=== PATIENT | male | born 1960 | race Caucasian/White ===

== ENCOUNTER → 2016-09-10 07:45 | Day surgery (SDC) | payer BC ==
[2016-09-09 16:25] LABS: HEMATOCRIT 42.8 % (42.0-54.0); HEMOGLOBIN 14.4 g/dL (13.5-17.5); MCHC 33.6 g/dL (31.0-37.0); MCV 97.9 fL (80.0-100.0); MEAN PLATELET VOLUME 10.5 fL (7.4-10.4); RBC 4.37 10x6/uL (4.20-6.10); RDW 13.1 % (11.5-14.5); WBC 9.1 10x3/uL (4.8-10.8)
[~2016-09-10] VITALS: Ht 172.7 cm; Wt 127.0 kg
[~2016-09-10 07:45] MED LIST: CLEOCIN HCL300 MG PO; COREG 3.1253.125 MG PO; CYMBALTA30 MG PO; HYDROCODON-ACE1 EAC7 PO; HYDROCODONE-APA1 TAB PO; NORVASC5 MG PO; PROVENTIL HFA6.7 GM INH
[2016-09-10 07:59] VITALS: BP 141/80; Ht 172.7 cm; Wt 127.0 kg
--- NOTE | 2016-09-10 13:22 | NUR ---
CM MET WITH PATIENT AND FRIEND REGARDING DISCHARGE PLANNING / NEEDS. PATIENT STATES HIS DISCHARGE PLAN IS TO RETURN HOME. WILL NEED HOME HEALTH SERVICES FOR DAILY WOUND CARE TO RT GROIN. PATIENT STATES HIS FRIEND BABAK ALVARENGA, CELL [phone], IS WILLING AND AVAILABLE TO LEARN HOW TO DO DAILY WOUND CARE LONG AGENCY CAN TEACH HIM BEFORE / AFTER WORK. INFORMED PATIENT AND BABAK THAT HOME HEALTH WOULD SCHEDULE VISITS WHEN CAREGIVER IS AVAILABLE TO ALLOW TIME FOR WOUND CARE TRAINING. PATIENT ALSO EXPRESSED NEED FOR SHOWER CHAIR. STATES HE IS INDEPENDENT WITH ALL ADL'S / IADL'S BUT WANTS SHOWER CHAIR TO ALLOW HIM TO REST DURING THE SHOWER. STATES HE HAS NO DIFFICULTY TRANSFERING INTO SHOWER/TUB AND KNOWS THAT HE CAN NOT BATHE, OR EMERSE WOUND INTO TUB OF WATER. CALLED [facility]ED FOR SHOWER CHAIR TO BE PICKED UP BY PATIENT ON HIS WAY HOME. INFORMED HIM THAT LOAN CLOSET CLOSES AT 1600 TODAY. PATIENT AND FRIEND BOTH VOICED UNDERSTANDING. VOICED SATISFACTION WITH SHOWER CHAIR ARRANGEMENTS AND WILL [employer] COUNSEL[employer] SHOWER CHAIR TODAY. PATIENT STATES HOME ENVIORONMENT IS SAFE. DENIES ANY OTHER DISHARGE PLANNING / NEEDS AT THIS TIME. PATIENT CHOSE [facility] [facility]. CM CALL [facility], SPOKE WITH RD. REFERRAL ACCEPTED. FAXED H&P, ORDER AND FACE SHEET TO AGENCY. CM WILL CONTINUE TO FOLLOW AND ASSIST NEEDED WITH DISCHARGE PLANNING / NEEDS.
--- NOTE | 2016-09-10 13:45 | NUR ---
1320-MEDICATED WITH ONE 10MG NORCO FOR INCISIONAL PAIN. 1325-PT. STATES HE VOIDED IN TOILET, DISCHARGE INSTRUCTIONS GIVEN. PT. ESCORTED VIA WHEELCHAIR TO PERSONAL CAR, LEFT WITH FAMILY DRIVING.
--- NOTE | 2016-09-22 14:52 | OP ---
PATIENT NAME: MARIELENA LAWRENCE MEDICAL RECORD: [id number] :64 LOCATION:D.OPS ADMISSION DATE: SURGEON: ROSSANA MORA MD DATE OF OPERATION: 09/10/2016 PREOPERATIVE DIAGNOSES: 1. Right groin abscess. 2. Tobacco dependence syndrome. 3. Hypertension. POSTOPERATIVE DIAGNOSES: 1. Right groin abscess. 2. Tobacco dependence syndrome. 3. Hypertension. PROCEDURE: I&D of right groin abscess. SURGEON: Rossana Mora MD. REPORT OF PROCEDURE: The patient's right groin and indwelling open wound with packing were all prepped and draped in sterile fashion. The packing was removed. I was able to manipulate my finger into the small wound and feel around in the cavity. I did penetrate into a small collection of fluid, which appeared to be purulent. I then extended the incision laterally a little bit. At this point, I was able to see inside of the wound a little bit better and saw no sign of any necrotic tissue. We irrigated out the wound thoroughly with peroxide and saline solution and then packed the wound with peroxide-soaked Kerlix. This was then dressed with dry 4 x 4s. COMPLICATIONS: None. CONDITION: Stable. ANESTHESIA: General endotracheal. BLOOD LOSS: 30 mL. TRANSINT:[id number] Voice Confirmation ID: [id number] DOCUMENT ID: [id number] ROSSANA MORA MD at 1452 CC: [id number] DICTATION DATE: 09/21/16 1359 LIFT MECHANIC: 09/21/16 1439 [facility] 09/10/[address] [address]
== END | disposition home or self-care (01) ==
LOC: D.OPS 07:45 → D.PAN 10:00 → D.OPS 10:30
PROVIDERS: Anesthesiology
DX: L02.214 Cutaneous abscess of groin (principal); F17.200 Nicotine dependence, unspecified, uncomplicated; I10 Essential (primary) hypertension; Z01.812 Encounter for preprocedural laboratory examination

== ENCOUNTER → 2020-11-18 19:02 | Outpatient (CLI) | payer OTHER ==
[2016-09-10 07:59] VITALS: BMI 42.6
[~2020-11-18 19:02] MED LIST changes: +DIOVAN160 MG PO; +GABAPENTIN300 MG PO; +LASIX40 MG PO; +NAPROSYN500 MG PO; +OMEPRAZOLE20 M1 PO; +TYLENOL W/CODEI1 TAB PO; +VENTOLIN HFA [SP8 GM INH; +VITAMIN D325 MC1 PO
== END | disposition home or self-care (01) ==
LOC: D.LABREF 19:02
PROVIDERS: ATTEND Orthopaedic Surgery
DX: M16.11 Unilateral primary osteoarthritis, right hip (principal)

== ENCOUNTER → 2020-11-22 12:45 | Outpatient (CLI) | payer OTHER ==
[2016-09-10 07:59] VITALS: BMI 42.6
--- NOTE | 2020-11-23 12:01 | EC ---
PATIENT:MARIELENA LAWRENCE DATE OF SERVICE: 11/22/20 SEX: M MEDICAL RECORD: [id number] DATE OF : 64 [facility] AGE OF PATIENT: 60 ADMISSION DATE: 11/22/20 REFERRING PHYSICIAN: INTERPRETING PHYSICIAN: GEORGIE RAMIREZ MD ECHOCARDIOGRAM REPORT ECHO CHARGES 4 ECHO COMPLETE Date: 11/22/20 CLINICAL DIAGNOSIS: ABNORMAL EKG, SOB ,CP ECHOCARDIOGRAPHIC MEASUREMENTS (adult normal given) AC root (d.<3.7cm) 3.3 cm LV Septum d (<1.2 cm> 1.3 cm Valve Excursion 1.7 cm LV Septum (systole) 1.4 cm Left Atria (s.<4.0cm> 3.6 cm LVPW d(<1.2cm) 1.2 cm RV (d.<2.3cm) 2.6 cm LVPW (sytole) 1.4 cm LV diastole(<5.6CM) 4.8 cm MV E-F(>70mm/sec) cm LV systole 3.8 cm LVOT Diameter 1.8 cm MV exc.(>10mm) 1.0 cm Est.ejection fraction (50-75%) % DOPPLER: LVIT cm/sec A 78 cm/sec E 71 cm/sec LA cm/sec RVSP 15 mmHg LVOT 125 cm/sec AOP1/2T m/s Asc. Ao 181 cm/sec RVOT 48 cm/sec RA cm/sec PA 94 cm/sec AV Gradient Peak 13.1 mmHg AV Mean 6.7 mmHg AV Area 1.9 cm MV Gradient Peak 4.3 mmHg MV Mean 1.4 mmHg MV Area cm COMMENTS: Radio Despatcher: Randy CONSTANTINO Machine Plate Stacker: 5 Dr. Ramirez TAPE# Pericardial Effusion N DATE OF SERVICE: INTERPRETATION: This is a technically difficult study, overall normal left ventricular chamber size and contractile function with mild concentric left ventricular hypertrophy with an ejection fraction of 55% to 60%. Left atrial chamber appears normal. Right atrium and right ventricular chamber is not well visualized, but appeared normal. Aortic valve is not well visualized. No aortic stenosis/regurgitation noted. Mitral valve appears normal. Trace mitral regurgitation. Tricuspid valve not well visualized, but appeared normal. Trace tricuspid regurgitation. Pulmonic valve not well visualized. No pulmonary ECHOCARDIOGRAM REPORT [id number] HOWARD,MARIELENA ROSSANA regurgitation noted. No pericardial effusion visualized. IMPRESSION: Technically difficult study, overall normal left ventricular chamber size and contractile function with mild concentric left ventricular hypertrophy with an ejection fraction of 55% to 60%. TRANSINT:[id number] Voice Confirmation ID: [id number] DOCUMENT ID: [id number] GEORGIE RAMIREZ MD at 1201 CC: [id number] DICTATION DATE: 11/22/20 1509 AUTOMO[employer]LE RADIO REPAIRER: 11/22/20 1638 DEP CLI 11/22/20 [facility] [address] [place] [address]
== END | disposition home or self-care (01) ==
LOC: D.HCCECHO 12:45
PROVIDERS: ATTEND Internal Medicine Cardiovascular Disease
DX: R94.31 Abnormal electrocardiogram [ECG] [EKG] (principal)